=== PATIENT | female | born 1940 | race Caucasian/White ===

== ENCOUNTER 2021-04-03 11:21 | Outpatient (CLI) | payer MEDICARE ==
[2021-04-03 14:25] LABS: Hemoglobin 12.5 g/dL (12.0-15.5); Mean Corpuscular HGB CONC 31.6 g/dL (32.0-36.0); Mean Corpuscular Hemoglobin 30.6 pg (27.0-33.0); Mean Corpuscular Volume 96.8 fl (81.6-98.3); Mean Platelet Volume 9.2 fl (7.4-10.4); Platelet Count 297 10x3/uL (150-450); RBC Distribution Width 13.1 % (11.5-14.5); Red Blood Cell (RBC) Count 4.09 10x6/uL (3.90-5.03); White Blood Cell (WBC) Count 8.8 10x3/uL (3.5-10.5)
[2021-04-03 14:43] LABS: Anion Gap 13 mmol/L (10-20); BUN (Urea Nitrogen) 20 mg/dL (9.8-20.1); Calc. Creatinine Clearance 0 mL/min (70-130); Calcium 9.8 mg/dL (7.8-10.44); Carbon Dioxide 25 mmol/L (23-31); Chloride 107 mmol/L (98-107); Glucose 76 mg/dL (83-110); Potassium 4.5 mmol/L (3.5-5.1); Sodium 140 mmol/L (136-145)
[2021-04-04 01:30] LABS: SARS-CoV-2 PCR by NAA Not Detected (NotDetected)
== END 2021-04-03 11:22 | disposition home or self-care (01) ==
LOC: CSHLAB 11:21
PROVIDERS: ATTEND Podiatrist Foot & Ankle Surgery
DX: Z01.818 Encounter for other preprocedural examination (principal); Z20.822 Contact with and (suspected) exposure to COVID-19; M21.612 Bunion of left foot; M20.42 Other hammer toe(s) (acquired), left foot; M77.42 Metatarsalgia, left foot
CPT/HCPCS: 80048; 85027; 87635; 93005; 93010; U0003; U0005

== ENCOUNTER 2021-04-05 10:01 | Day surgery (SDC) | payer MEDICARE ==
[2021-04-05] MEDS ORDERED: Lidocaine 1% MPF 2 ML VIAL ONE (10:37)
[2021-04-05] MEDS ORDERED: Lidocaine 1% (PF) 30 ML VIAL ONE (12:50)
[2021-04-05] MEDS ORDERED: Neomycin-Polymyxin 1 ML AMP ONE (12:50)
[2021-04-05] MEDS ORDERED: Bupivacaine PF 0.5% 30 ML VIAL ONE (12:50)
[2021-04-05] MEDS ORDERED: Dexamethasone 4 mg/ml Vial ONE (13:12)
[2021-04-05] MEDS ORDERED: Metoclopramide HCl 10 MG/2 ML VIAL ONE (13:12)
[2021-04-05] MEDS ORDERED: Ondansetron PF 4 MG/2 ML Vial ONE (13:12)
[2021-04-05] MEDS ORDERED: PHENYLEPHRINE-NS 100 MCG/ML 10 ML SYRINGE ONE (13:14)
[2021-04-05] MEDS ORDERED: Fentanyl 100 MCG/2 ML VIAL ONE (14:27)
[2021-04-05] MEDS ORDERED: Ketorolac Tromethamine 15 MG/ML VIAL ONE (15:32)
== END 2021-04-05 17:10 | disposition home or self-care (01) ==
LOC: CSHSDC 10:01
PROVIDERS: ATTEND Podiatrist Foot & Ankle Surgery
PROC: 0SGN04Z Fusion of Left Metatarsal-Phalangeal Joint with Internal Fixation Device, Open Approach (ICD-10-PCS; principal; 2021-04-05)
DX: M20.42 Other hammer toe(s) (acquired), left foot (principal); M77.42 Metatarsalgia, left foot; M21.612 Bunion of left foot
CPT/HCPCS: 28285 ×3; 28308; 28750; 73630; 76000; C1713 ×5; C1776; J0690; J1100; J1885; J2001; J2405; J2765; J3010; S0020

== ENCOUNTER 2021-10-12 10:07 | Outpatient (CLI) | payer MEDICARE | END 2021-10-12 10:08 | disposition home or self-care (01) | LOC: CSHCT 10:07 | PROVIDERS: ATTEND Urology | DX: N39.0 Urinary tract infection, site not specified (principal); N20.0 Calculus of kidney; N28.1 Cyst of kidney, acquired; K40.20 Bilateral inguinal hernia, without obstruction or gangrene, not specified as recurrent; K57.90 Diverticulosis of intestine, part unspecified, without perforation or abscess without bleeding; N32.89 Other specified disorders of bladder; K44.9 Diaphragmatic hernia without obstruction or gangrene | CPT/HCPCS: 74178; 82565 ==

== ENCOUNTER 2022-06-15 07:58 | Outpatient (CLI) | payer MEDICARE | END 2022-06-15 07:59 | disposition home or self-care (01) | LOC: CSHMAMMO 07:58 | PROVIDERS: ATTEND Family Medicine | DX: Z12.31 Encounter for screening mammogram for malignant neoplasm of breast (principal) | CPT/HCPCS: 77063; 77067 ==

== ENCOUNTER 2023-01-23 14:58 | Outpatient (CLI) | payer MEDICARE | END 2023-01-23 14:59 | disposition home or self-care (01) | LOC: CSHMAMMO 14:58 | PROVIDERS: ATTEND Family Medicine | DX: M85.851 Other specified disorders of bone density and structure, right thigh (principal); M85.852 Other specified disorders of bone density and structure, left thigh | CPT/HCPCS: 77080 ==

== ENCOUNTER 2024-01-22 | Outpatient (CLI) | payer MEDICARE | END 2024-01-22 12:57 | disposition home or self-care (01) | DX: Z01.812 Encounter for preprocedural laboratory examination (principal); M20.41 Other hammer toe(s) (acquired), right foot ==

== ENCOUNTER 2024-01-29 09:50 | Day surgery (SDC) | payer MEDICARE ==
[2024-01-22 14:02] VITALS: BMI 21.1
[2024-01-29] MEDS ORDERED: CEFAZOLIN 2 GM VIAL ONE (11:22)
[2024-01-29] MEDS ORDERED: Bupivacaine PF 0.5% 30 ML VIAL ONE (11:37)
[2024-01-29] MEDS ORDERED: PROPOFOL 20 ML ONE (11:51)
[2024-01-29] MEDS ORDERED: fentaNYL 50 mcg/mL 1 mL Vial ONE (11:51)
[2024-01-29] MEDS ORDERED: Lidocaine 1% PF 5 ML VIAL ONE (11:54)
[2024-01-29] MEDS ORDERED: Ondansetron PF 4 MG/2 ML Vial ONE (12:56)
[2024-01-29] MEDS ORDERED: Dexamethasone 4 mg/ml Vial ONE (12:56)
== END 2024-01-29 14:15 | disposition home or self-care (01) ==
LOC: CSHSDC 09:50
PROVIDERS: ATTEND Podiatrist Foot & Ankle Surgery
PROC: 0SGP07Z Fusion of Right Toe Phalangeal Joint with Autologous Tissue Substitute, Open Approach (ICD-10-PCS; principal; 2024-01-29)
PROC: 0SGP07Z Fusion of Right Toe Phalangeal Joint with Autologous Tissue Substitute, Open Approach (ICD-10-PCS; 2024-01-29)
DX: M20.41 Other hammer toe(s) (acquired), right foot (principal); E03.9 Hypothyroidism, unspecified; I10 Essential (primary) hypertension; E55.9 Vitamin D deficiency, unspecified; M85.80 Other specified disorders of bone density and structure, unspecified site; Q61.9 Cystic kidney disease, unspecified; R74.8 Abnormal levels of other serum enzymes; N39.41 Urge incontinence; I73.9 Peripheral vascular disease, unspecified; Z79.899 Other long term (current) drug therapy; Z78.0 Asymptomatic menopausal state
CPT/HCPCS: 26860; 26861 ×2; 73620; J3010; C1713; J0665; J1100; J2405; J2704

== ENCOUNTER 2024-06-19 09:28 | Outpatient (CLI) | payer MEDICARE | END 2024-06-19 09:29 | disposition home or self-care (01) | LOC: CSHMAMMO 09:28 | PROVIDERS: ATTEND Family Medicine Sports Medicine | DX: Z12.31 Encounter for screening mammogram for malignant neoplasm of breast (principal) | CPT/HCPCS: 77063; 77067 ==